=== PATIENT | female | born 1940 | race Caucasian/White ===

== ENCOUNTER 2018-03-16 01:06 | Inpatient (IN) | payer OTHER, MEDICAID ==
[2018-03-16] MEDS: SOD CHLORIDE 0.9% 500 ML IV (01:55)
[2018-03-16] MEDS: ONDANSETRON 4 MG INJ IV ×2 (01:55→15:36)
[2018-03-16 02:05] LABS: ADD MAN DIFF? NO
[2018-03-16 02:06] LABS: WHITE BLOOD COUNT 22.3 10^3/ul (4.8-10.8)
[2018-03-16 02:07] LABS: ABNORMAL IP MESSAGE 1; BASOPHILS % 0.2 % (0.0-2.0); EOSINOPHILS # 0.2 10^3/ul (0.0-0.5); EOSINOPHILS % 0.9 % (0.0-7.0); HEMATOCRIT 32.5 % (37.0-47.0); HEMOGLOBIN 10.6 g/dl (12.0-16.0); LYMPHOCYTES # 0.9 10^3/ul (0.8-2.9); MEAN CORPUSCULAR HEMOGLOBIN 29.2 pg (29.0-33.0); MEAN CORPUSCULAR HGB CONC 32.6 g/dl (32.0-37.0); MEAN CORPUSCULAR VOLUME 89.5 fl (82.0-101.0); MEAN PLATELET VOLUME 11.3 fl (7.4-10.4); MONOCYTE # 0.7 10^3/ul (0.3-0.9); MONOCYTES % 2.9 % (0.0-11.0); NEUTROPHIL # 20.1 10^3/ul (1.6-7.5); NEUTROPHILS % 89.9 % (39.0-77.0); PLATELET COUNT 184 10^3/UL (140-415); RED BLOOD COUNT 3.63 10^6/ul (4.20-5.40); RED CELL DISTRIBUTION WIDTH 14.9 % (11.5-14.5)
[2018-03-16 02:27] LABS: POSITIVE DIFF @See below
[2018-03-16 02:33] LABS: ALANINE AMINOTRANSFERASE 21 IU/L (13-69); ALBUMIN 3.7 g/dl (3.3-4.9); ALBUMIN/GLOBULIN RATIO 1.05; ALKALINE PHOSPHATASE 75 IU/L (42-121); ANION GAP 13 (8-16); ASPARTATE AMINO TRANSFERASE 48 IU/L (15-46); BILIRUBIN,INDIRECT 0.1 mg/dl (0-1.1); BILIRUBIN,TOTAL 0.1 mg/dl (0.2-1.3); BLOOD UREA NITROGEN 51 mg/dl (7-20); CALCIUM 9.4 mg/dl (8.4-10.2); CARBON DIOXIDE 22 mmol/L (21-31); CHLORIDE 111 mmol/L (97-110); CREATININE 2.78 mg/dl (0.44-1.00); GLUCOSE 124 mg/dl (70-220); LIPASE 50 U/L (23-300); POTASSIUM 5.3 mmol/L (3.5-5.1); SODIUM 141 mmol/L (135-144); TOTAL PROTEIN 7.2 g/dl (6.1-8.1)
[2018-03-16 04:34] LABS: ADD UMIC YES; UR ASCORBIC ACID NEGATIVE (NEGATIVE); UR BACTERIA MODERATE /HPF (NONE SEEN); UR BILIRUBIN (Dip) NEGATIVE (NEGATIVE); UR BLOOD (Dip) NEGATIVE (NEGATIVE); UR CLARITY SLIGHTLY CLOUDY (CLEAR); UR COLOR YELLOW (YELLOW); UR GLUCOSE (Dip) 2+ mg/dL (NEGATIVE); UR KETONES (Dip) TRACE mg/dL (NEGATIVE); UR LEUKOCYTE ESTERASE (Dip) TRACE Leu/ul (NEGATIVE); UR NITRITE (Dip) NEGATIVE (NEGATIVE); UR RBC 1 /HPF (0-5); UR TOTAL PROTEIN (Dip) 3+ mg/dl (NEGATIVE); UR UROBILINOGEN (Dip) 2+ mg/dL (NEGATIVE); UR WBC 15 /HPF (0-5)
[2018-03-16] MEDS: CIPROFLOXACIN 400MG/D5W 200 ML IVPB (05:55)
[2018-03-16] MEDS ORDERED: NACL 0.9% 3 ML SYG IV (15:30)
[2018-03-16] MEDS ORDERED: DOCUSATE SODIUM 100 MG CAP PO (15:30)
[2018-03-16] MEDS ORDERED: HYDROCODONE/APAP (5/325) TAB PO (15:30)
[2018-03-16] MEDS: FAMOTIDINE 20 MG TAB PO (15:36)
[2018-03-16] MEDS: SOD CHLORIDE 0.9% 1,000 ML IV (15:40)
[2018-03-16] MEDS ORDERED: DEXTROSE 50% 50 ML SYRINGE IV ×2 (16:00)
[2018-03-16] MEDS ORDERED: GLUCAGON 1 MG INJ IM (16:00)
[2018-03-16] MEDS ORDERED: GLUCOSE GEL 15 GRAM TUBE BUCCAL (16:00)
[2018-03-16] MEDS ORDERED: GLUCOSE GEL 15 GRAM TUBE PO ×2 (16:00)
[2018-03-16 17:08] LABS: SODIUM,URINE RANDOM 46 mmol/L (30-90)
[2018-03-16] MEDS: INSULIN ASPART [NOVOLOG] 3 ML PEN SC ×2 (17:51→20:16)
[2018-03-16] MEDS: MEROPENEM 500MG/50 ML (PMX) 50 ML IVPB (17:51)
[2018-03-16] MEDS: ACETAMINOPHEN 325 MG TAB PO (20:13)
[2018-03-16] MEDS: ATORVASTATIN 20 MG TAB PO (20:13)
[2018-03-16] MEDS: HEPARIN 5,000 UNIT/0.5 ML VIAL SC (20:29)
[2018-03-17] MEDS: ACCU-CHEK XX (02:00)
[2018-03-17 05:54] LABS: ADD MAN DIFF? NO
[2018-03-17 05:58] LABS: WHITE BLOOD COUNT 20.7 10^3/ul (4.8-10.8)
[2018-03-17 05:58] LABS: BASOPHIL # 0.1 10^3/ul (0.0-0.1); BASOPHILS % 0.2 % (0.0-2.0); EOSINOPHILS # 0.3 10^3/ul (0.0-0.5); EOSINOPHILS % 1.5 % (0.0-7.0); HEMATOCRIT 30.4 % (37.0-47.0); HEMOGLOBIN 9.7 g/dl (12.0-16.0); LYMPHOCYTES # 1.5 10^3/ul (0.8-2.9); LYMPHOCYTES % 7.4 % (15.0-51.0); MEAN CORPUSCULAR HEMOGLOBIN 29.4 pg (29.0-33.0); MEAN CORPUSCULAR HGB CONC 31.9 g/dl (32.0-37.0); MEAN CORPUSCULAR VOLUME 92.1 fl (82.0-101.0); MEAN PLATELET VOLUME 12.2 fl (7.4-10.4); MONOCYTE # 0.4 10^3/ul (0.3-0.9); NEUTROPHIL # 17.9 10^3/ul (1.6-7.5); NEUTROPHILS % 86.6 % (39.0-77.0); PLATELET COUNT 160 10^3/UL (140-415); RED CELL DISTRIBUTION WIDTH 15.6 % (11.5-14.5)
[2018-03-17] MEDS: LEVOTHYROXINE 88 MCG TAB PO (06:13)
[2018-03-17 06:40] LABS: ANION GAP 11 (8-16); BLOOD UREA NITROGEN 49 mg/dl (7-20); CALCIUM 8.6 mg/dl (8.4-10.2); CARBON DIOXIDE 23 mmol/L (21-31); CHLORIDE 111 mmol/L (97-110); CREATININE 2.84 mg/dl (0.44-1.00); GLUCOSE 76 mg/dl (70-220); POTASSIUM 4.9 mmol/L (3.5-5.1); SODIUM 140 mmol/L (135-144)
[2018-03-17] MEDS: INSULIN ASPART [NOVOLOG] 3 ML PEN SC ×5 (08:00→21:14)
[2018-03-17] MEDS: GABAPENTIN 100 MG CAP PO (08:35)
[2018-03-17] MEDS: FAMOTIDINE 20 MG TAB PO (08:35)
[2018-03-17] MEDS: FOLIC ACID 1 MG TAB PO (08:36)
[2018-03-17] MEDS: ASPIRIN (EC) 81 MG TAB PO (08:36)
[2018-03-17] MEDS: HEPARIN 5,000 UNIT/0.5 ML VIAL SC ×2 (08:38→20:40)
[2018-03-17] MEDS: MEROPENEM 500MG/50 ML (PMX) 50 ML IVPB ×2 (09:25→20:36)
[2018-03-17] MEDS: DEXTROSE 5%-0.45% NACL 1,000 ML IV (11:13)
[2018-03-17] MEDS: ONDANSETRON 4 MG INJ IV (19:13)
[2018-03-17] MEDS: ATORVASTATIN 20 MG TAB PO (20:36)
[2018-03-17] MEDS ORDERED: ALBUTEROL/IPRATROPIUM (NEB) 3 ML AMP HHN (21:00)
[2018-03-17] MEDS: ALBUTEROL/IPRATROPIUM (NEB) 3 ML AMP HHN (21:36)
[2018-03-17] MEDS: FUROSEMIDE 40 MG INJ IV ×2 (22:13→22:58)
[2018-03-17 22:41] LABS: AADO2 Arterial 145.5 mmHg (7.0-24.0); Allen Test ACCEPTAB; Arterial Base Excess -6.7 mmol/L (-3.0-3); Arterial Blood Gas Oxygen Sat 97.1 mmHG (95.0-100.0); Arterial COHb 0.3 % (0.0-3.0); Arterial Fraction of Oxyhgb 96.4 % (93.0-99.0); Arterial HCO3 18.1 mmol/L (22.0-26.0); Arterial MetHb 0.4 % (0.0-1.5); Arterial Total Hemglobin 10.5 g/dl (12.0-18.0); Arterial pCO2 33.6 mmhg (35-45); MODE NASAL CANNULA; Site Left Radial
[2018-03-18] MEDS: ALBUTEROL/IPRATROPIUM (NEB) 3 ML AMP HHN ×3 (01:39→14:13)
[2018-03-18] MEDS: ACCU-CHEK XX (02:27)
[2018-03-18] MEDS: FUROSEMIDE 40 MG INJ IV (04:21)
[2018-03-18] MEDS: LEVOTHYROXINE 88 MCG TAB PO (06:16)
[2018-03-18] MEDS: MEROPENEM 500MG/50 ML (PMX) 50 ML IVPB (08:04)
[2018-03-18] MEDS: ASPIRIN (EC) 81 MG TAB PO (08:04)
[2018-03-18] MEDS: FOLIC ACID 1 MG TAB PO (08:04)
[2018-03-18] MEDS: GABAPENTIN 100 MG CAP PO (08:04)
[2018-03-18] MEDS: FAMOTIDINE 20 MG TAB PO (08:04)
[2018-03-18] MEDS: INSULIN ASPART [NOVOLOG] 3 ML PEN SC ×2 (08:17→13:00)
[2018-03-18 08:52] LABS: ADD MAN DIFF? NO
[2018-03-18 08:56] LABS: WHITE BLOOD COUNT 13.4 10^3/ul (4.8-10.8)
[2018-03-18 08:56] LABS: BASOPHILS % 0.2 % (0.0-2.0); EOSINOPHILS % 0.1 % (0.0-7.0); HEMATOCRIT 29.5 % (37.0-47.0); HEMOGLOBIN 9.4 g/dl (12.0-16.0); LYMPHOCYTES # 1.4 10^3/ul (0.8-2.9); LYMPHOCYTES % 10.7 % (15.0-51.0); MEAN CORPUSCULAR HEMOGLOBIN 28.6 pg (29.0-33.0); MEAN CORPUSCULAR HGB CONC 31.9 g/dl (32.0-37.0); MEAN CORPUSCULAR VOLUME 89.7 fl (82.0-101.0); MEAN PLATELET VOLUME 11.6 fl (7.4-10.4); MONOCYTE # 0.6 10^3/ul (0.3-0.9); MONOCYTES % 4.7 % (0.0-11.0); NEUTROPHIL # 11.2 10^3/ul (1.6-7.5); NEUTROPHILS % 83.6 % (39.0-77.0); PLATELET COUNT 159 10^3/UL (140-415); RED BLOOD COUNT 3.29 10^6/ul (4.20-5.40)
[2018-03-18] MEDS: HEPARIN 5,000 UNIT/0.5 ML VIAL SC (08:57)
[2018-03-18 09:13] LABS: ANION GAP 15 (8-16); BLOOD UREA NITROGEN 44 mg/dl (7-20); CALCIUM 8.3 mg/dl (8.4-10.2); CARBON DIOXIDE 21 mmol/L (21-31); CHLORIDE 103 mmol/L (97-110); CREATININE 2.58 mg/dl (0.44-1.00); GLUCOSE 364 mg/dl (70-220); POTASSIUM 4.5 mmol/L (3.5-5.1); SODIUM 134 mmol/L (135-144)
[2018-03-18 09:14] LABS: MAGNESIUM 2.2 mg/dl (1.7-2.5)
[2018-03-18 09:14] LABS: PHOSPHORUS 2.9 mg/dl (2.5-4.9)
[2018-03-18] MEDS: DEXTROSE 5%-0.45% NACL 1,000 ML IV (11:00)
[2018-03-18] MEDS ORDERED: INSULIN ASPART [NOVOLOG] 3 ML PEN SC (18:00)
[2018-03-18] MEDS ORDERED: INSULIN GLARGINE [LANTus] (100 UNITS/ML) SYG SC (20:00)
[2018-03-19] MEDS ORDERED: ACCU-CHEK XX (02:00)
== END 2018-03-18 18:20 | disposition left against medical advice (07) | DRG 689 ==
LOC: 2NE 08:02 → E/R 01:06 → 2NE 05:29
DX: N39.0 Urinary tract infection, site not specified (principal); J18.9 Pneumonia, unspecified organism; N17.9 Acute kidney failure, unspecified; E78.5 Hyperlipidemia, unspecified; I10 Essential (primary) hypertension; Z99.3 Dependence on wheelchair; I25.10 Atherosclerotic heart disease of native coronary artery without angina pectoris; I25.2 Old myocardial infarction; E87.5 Hyperkalemia; Z71.3 Dietary counseling and surveillance; E78.00 Pure hypercholesterolemia, unspecified; E11.40 Type 2 diabetes mellitus with diabetic neuropathy, unspecified; K82.9 Disease of gallbladder, unspecified; K59.00 Constipation, unspecified; K62.9 Disease of anus and rectum, unspecified
CPT/HCPCS: 36415; 36600; 71045; 73562-50; 74176; 80048; 80053; 81001; 82803; 82962; 83690; 83735; 84100; 84300; 85025; 87040; 87086; 89190; 94640; 94664; 96361; 96374; 96375; 97163; 99217; 99285-25